=== PATIENT | female | born 1985 | race Caucasian/White ===

== ENCOUNTER 2017-02-17 08:47 | Outpatient (CLI) | payer OTHER ==
[2017-02-17 10:02] LABS: ALT (SGPT) 9 U/L (0-55); AST (SGOT) 15 U/L (5-34); Albumin 3.9 g/dL (3.5-5.0); Alkaline Phosphatase 42 U/L (40-150); Anion Gap 13 mmol/L (10-20); BUN (Urea Nitrogen) 7 mg/dL (7.0-18.7); Bilirubin, Total 0.6 mg/dL (0.2-1.2); Calc. Creatinine Clearance 0 mL/min (70-130); Calcium 9.1 mg/dL (7.8-10.44); Carbon Dioxide 22 mmol/L (22-29); Chloride 103 mmol/L (98-107); Estimated GFR-MDRD Greater than 90; Globulin 3.3 g/dL (2.4-3.5); Glucose 83 mg/dL (70-105); Potassium 3.9 mmol/L (3.5-5.1); Protein, Total 7.2 g/dL (6.0-8.3); Sodium 134 mmol/L (136-145)
[2017-02-17 10:29] LABS: Free T3 2.49 pg/mL (1.71-3.71); Free T4 (Free Thyroxine) 1.04 ng/dL (0.70-1.48); Thyroid Stimulating Hormone 1.1779 uIU/mL (0.35-4.94); Vitamin D, 25 Hydroxy 22.2 ng/mL (> 30.0)
[2017-02-17 18:19] LABS: Luteinizing Hormone 0.2 mIU/mL (See Ranges)
[2017-02-17 18:22] LABS: Follicle Stimulating Hormone Less than 0.05 mIU/mL (See Ranges)
[2017-02-18 11:14] LABS: Reference Lab Name LABCORP
== END 2017-02-17 08:48 | disposition home or self-care (01) ==
LOC: NAV LAB 08:47
PROVIDERS: ATTEND Internal Medicine Endocrinology, Diabetes & Metabolism
DX: E03.9 Hypothyroidism, unspecified (principal); E22.1 Hyperprolactinemia; E55.9 Vitamin D deficiency, unspecified
CPT/HCPCS: 36415; 80053; 82306; 82627; 83001; 83002; 84146; 84439; 84443; 84481

== ENCOUNTER 2017-05-26 09:00 | Outpatient (CLI) | payer OTHER ==
[2017-05-26 10:23] LABS: #Basophils 0.1 thou/uL (0.0-0.2); #Eosinphils 0.1 thou/uL (0.0-0.7); #Lymphocytes 1.7 thou/uL (1.20-3.40); #Monocytes 0.8 thou/uL (0.11-0.59); #Neutrophils 8.7 thou/uL (1.40-6.50); %Basophils 0.6 % (0.0-1.0); %Monocytes 6.6 % (0.0-10.0); %Neutrophils 76.8 % (42.0-75.0); Hemoglobin 11.3 g/dL (12.0-16.0); Mean Corpuscular HGB CONC 32.5 g/dL (32.0-36.0); Mean Corpuscular Hemoglobin 29.4 pg (27.0-31.0); Mean Corpuscular Volume 90.3 fl (81.0-99.0); Mean Platelet Volume 8.4 fL (7.4-10.4); Platelet Count 223 thou/uL (130-400); RBC Distribution Width 11.2 % (11.5-14.5); Red Blood Cell (RBC) Count 3.84 mill/uL (4.20-5.40); White Blood Cell (WBC) Count 11.3 thou/uL (4.8-10.8)
[2017-05-26 18:24] LABS: HIV (1/2) Antibody/Antigen Non-Reactive (NonReactive); HIV 1/2 INDEX 0.08 S/CO (<1.00)
== END 2017-05-26 09:01 | disposition home or self-care (01) ==
LOC: NAV LAB 09:00
PROVIDERS: ATTEND Family Medicine
DX: Z33.1 Pregnant state, incidental (principal)
CPT/HCPCS: 36415; 82950; 85025; 87389